=== PATIENT | female | born 1945 | race Caucasian/White ===

== ENCOUNTER 2016-07-30 13:53 | Inpatient (IN) | payer OTHER ==
[~2016-07-30] VITALS: Ht 160 cm; Wt 96.7 kg
[2016-07-30] VITALS (10 sets, daily range): BP systolic 125–185; BP diastolic 34–84
[2016-07-30 15:16] LABS: HEMATOCRIT 19.8 % (36.0-46.0); MCH 14.8 PG (29.0-34.0); MCHC 25.3 G/DL (30.0-36.0); MCV 58.8 FL (83-99); RBC DIS.WIDTH-CV 23.3 % (11.8-14.6); RBC DIS.WIDTH-SD 45.6 % (39-53); RED BLOOD COUNT 3.37 M/uL (3.80-5.20); WHITE BLOOD COUNT 7.1 K/uL (4.1-10.2)
[2016-07-30 15:33] LABS: ANION GAP 16 MEQ/L (2-14); CHLORIDE 99 MEQ/L (99-109); POTASSIUM 3.9 MEQ/L (3.7-5.4); SAMPLE HEMOLYSIS CHECK 0; SAMPLE ICTERIC CHECK 0; SAMPLE LIPEMIA CHECK 0; SODIUM 141 MEQ/L (136-147)
[2016-07-30 15:38] LABS: GFR ESTIMATE (CALCULATED) > 59 mL/min/; GLUCOSE 186 mg/dL (70-99); UREA NITROGEN (BUN) 18 mg/dL (9-23)
[2016-07-30 16:03] LABS: PLATELET COUNT 245 K/uL (156-360)
[2016-07-30 19:03] LABS: ALKALINE PHOSPHATASE 54 IU/L (3-129); DIRECT BILIRUBIN 0.1 mg/dL (0.0-0.3); TOTAL BILIRUBIN 0.5 MG/DL (0.0-1.0)
[2016-07-30 19:09] LABS: INTER. NORMALIZED RATIO 1.1; PROTHROMBIN TIME 10.7 (9.2-11.2); PTT 23.9 (25-32)
[2016-07-31] VITALS (10 sets, daily range): BP systolic 140–172; BP diastolic 59–71
[2016-07-31 05:44] LABS: ANION GAP 10 MEQ/L (2-14); CHLORIDE 103 MEQ/L (99-109); GFR ESTIMATE (CALCULATED) > 59 mL/min/; POTASSIUM 3.9 MEQ/L (3.7-5.4); SAMPLE HEMOLYSIS CHECK 0; SAMPLE ICTERIC CHECK 0; SAMPLE LIPEMIA CHECK 0; SODIUM 139 MEQ/L (136-147); UREA NITROGEN (BUN) 12 mg/dL (9-23)
[2016-07-31 05:46] LABS: HEMATOCRIT 23.9 % (36.0-46.0); MCH 18.3 PG (29.0-34.0); MCHC 28.5 G/DL (30.0-36.0); MCV 64.6 FL (83-99); RBC DIS.WIDTH-CV 26.9 % (11.8-14.6); RBC DIS.WIDTH-SD 62.6 % (39-53); RED BLOOD COUNT 3.72 M/uL (3.80-5.20); WHITE BLOOD COUNT 6.9 K/uL (4.1-10.2)
[2016-07-31 05:53] LABS: GLUCOSE 119 mg/dL (70-99)
[2016-07-31 06:16] LABS: PLATELET COUNT 259 K/uL (156-360)
[2016-07-31] MEDS ORDERED: GLUCOPHAGE1000 MG PO (11:29)
[2016-07-31] MEDS ORDERED: OXYCODONE HCL10 MG PO (11:29)
[2016-07-31] MEDS ORDERED: LEVEMIR FL100 UNIT/1 SC (11:29)
[2016-07-31] MEDS ORDERED: OXYBUTYNIN CHLO10 MG PO (11:30)
[2016-07-31] MEDS ORDERED: PLAVIX75 MG PO (11:30)
[2016-07-31] MEDS ORDERED: CARDURA4 MG PO (11:30)
[2016-07-31] MEDS ORDERED: HYDROCHLOROTH12.5 M3 PO (11:31)
[2016-07-31] MEDS ORDERED: PRILOSEC20 MG PO (11:31)
[2016-07-31] MEDS ORDERED: NEURONTIN300 MG PO (11:32)
[2016-07-31] MEDS ORDERED: COZAAR100 MG PO (11:32)
[2016-07-31] MEDS ORDERED: PRANDIN1 MG PO (11:32)
[2016-07-31] MEDS ORDERED: ZOLOFT50 MG PO (11:33)
[2016-07-31] MEDS ORDERED: LOW DOSE ASPIRI81 M1 PO (11:33)
[2016-07-31] MEDS ORDERED: NORVASC5 MG PO (11:33)
[2016-07-31] MEDS ORDERED: LIPITOR40 MG PO (11:33)
[2016-07-31] MEDS ORDERED: LUMIGAN 0.50 DROP/22 BOTH EYES (11:34)
[2016-07-31] MEDS ORDERED: ILEVRO1.7 ML LEFT EYE (11:34)
[2016-07-31] MEDS ORDERED: DUREZOL 0.100 DROP/5 LEFT EYE (11:34)
[2016-07-31 13:30] LABS: HEMATOCRIT 28.6 % (36.0-46.0); MCV 65.7 FL (83-99)
[2016-07-31 14:27] LABS: ADD MIUA? YES; BILIRUBIN NEGATIVE; BLOOD MODERATE; COLOR YELLOW ((YELLOW)); GLUCOSE (STRIP) NEGATIVE; KETONES NEGATIVE; LEUKOCYTES SMALL; NITRITE NEGATIVE; PROTEIN (STRIP) 30; SPECIFIC GRAVITY 1.009 (1.000-1.030); UROBILINOGEN 0.2 MG/DL (0.2-1.0)
[2016-07-31 15:34] LABS: BACTERIA RARE; CASTS NONE SEEN /LPF; CRYSTALS NONE SEEN; EPITHELIAL CELLS 1+; MUCUS TRACE; RED BLOOD CELLS 0-5 /HPF (0-5); UCUL ADDED? NO; WHITE BLOOD CELLS 0-5 /HPF (0-5)
[2016-07-31 17:13] LABS: POINT-OF-CARE METER ID UU13113694; POINT-OF-CARE USER ID OPEBLP59
[2016-08-01] VITALS: BP 157/67
[2016-08-01 00:32] LABS: HEMATOCRIT 28.6 % (36.0-46.0); MCV 65.7 FL (83-99)
[2016-08-01 04:03] VITALS: BP 146/70
[2016-08-01 07:00] LABS: ANION GAP 13 MEQ/L (2-14); CHLORIDE 101 MEQ/L (99-109); GFR ESTIMATE (CALCULATED) > 59 mL/min/; GLUCOSE 136 mg/dL (70-99); POTASSIUM 3.7 MEQ/L (3.7-5.4); SAMPLE HEMOLYSIS CHECK 0; SAMPLE ICTERIC CHECK 0; SAMPLE LIPEMIA CHECK 0; SODIUM 140 MEQ/L (136-147); UREA NITROGEN (BUN) 9 mg/dL (9-23)
[2016-08-01 07:52] VITALS: BP 138/58
[2016-08-01 07:59] LABS: HEMATOCRIT 28.3 % (36.0-46.0); MCH 20.1 PG (29.0-34.0); MCV 67.1 FL (83-99); PLATELET COUNT 243 K/uL (156-360); RBC DIS.WIDTH-CV 27.8 % (11.8-14.6); RBC DIS.WIDTH-SD 67.3 % (39-53); RED BLOOD COUNT 4.22 M/uL (3.80-5.20); WHITE BLOOD COUNT 6.7 K/uL (4.1-10.2)
[2016-08-01 12:31] LABS: POINT-OF-CARE METER ID UU13113694
[2016-08-01 15:23] VITALS: BP 195/81
[2016-08-01 19:55] VITALS: BP 163/69
[2016-08-02] VITALS (7 sets, daily range): BP systolic 133–180; BP diastolic 60–73
[2016-08-02 06:41] LABS: GFR ESTIMATE (CALCULATED) > 59 mL/min/; UREA NITROGEN (BUN) 8 mg/dL (9-23)
[2016-08-02 08:29] LABS: NRBC (%) 0.8 /100 WBC (0-0)
[2016-08-02 08:37] LABS: ANION GAP 12 MEQ/L (2-14); CHLORIDE 107 MEQ/L (99-109); GLUCOSE 133 mg/dL (70-99); SODIUM 143 MEQ/L (136-147)
[2016-08-02 08:39] LABS: BASOPHIL COUNT 0.1 K/uL (0-0.1); EOSINOPHIL (%) 2.4 % (0-5); EOSINOPHIL COUNT 0.2 K/uL (0-0.3); IMMATURE GRANULOCYTE (%) 1.6 % (0.0-0.7); IMMATURE GRANULOCYTE COUNT 0.1 K/uL; LYMPHOCYTE COUNT 1.9 K/uL (1.0-2.8); MONOCYTE (%) 10.3 % (3-12); MONOCYTE COUNT 0.8 K/uL (0-0.8); NEUTROPHIL (%) 59.7 % (45-76); NEUTROPHIL COUNT 4.5 K/uL (1.8-6.4)
[2016-08-02 09:24] LABS: HEMATOCRIT 29.5 % (36.0-46.0); MCH 20.1 PG (29.0-34.0); MCHC 29.2 G/DL (30.0-36.0); MCV 68.9 FL (83-99); RBC DIS.WIDTH-SD 70.5 % (39-53); RED BLOOD COUNT 4.28 M/uL (3.80-5.20); WHITE BLOOD COUNT 7.5 K/uL (4.1-10.2)
[2016-08-02 09:51] LABS: PLAT.SUFFICIENCY ADEQUATE; PLATELET COUNT 223 K/uL (156-360); USER ID STC
[2016-08-03 00:25] VITALS: BP 151/64
[2016-08-03 04:30] VITALS: BP 130/69
[2016-08-03 07:51] LABS: ANION GAP 11 MEQ/L (2-14); CHLORIDE 105 MEQ/L (99-109); GFR ESTIMATE (CALCULATED) > 59 mL/min/; GLUCOSE 146 mg/dL (70-99); POTASSIUM 3.9 MEQ/L (3.7-5.4); SAMPLE HEMOLYSIS CHECK 0; SAMPLE ICTERIC CHECK 0; SAMPLE LIPEMIA CHECK 0; SODIUM 141 MEQ/L (136-147); UREA NITROGEN (BUN) 13 mg/dL (9-23)
[2016-08-03 08:08] VITALS: BP 145/65
[2016-08-03 08:10] LABS: BASOPHIL COUNT 0.1 K/uL (0-0.1); EOSINOPHIL (%) 2.8 % (0-5); EOSINOPHIL COUNT 0.2 K/uL (0-0.3); HEMATOCRIT 31.2 % (36.0-46.0); IMMATURE GRANULOCYTE COUNT 0.1 K/uL; MCH 20.1 PG (29.0-34.0); MCHC 28.8 G/DL (30.0-36.0); MCV 69.8 FL (83-99); MONOCYTE (%) 7.7 % (3-12); MONOCYTE COUNT 0.6 K/uL (0-0.8); NEUTROPHIL (%) 61.6 % (45-76); NEUTROPHIL COUNT 4.8 K/uL (1.8-6.4); RBC DIS.WIDTH-CV 29.9 % (11.8-14.6); RBC DIS.WIDTH-SD 70.7 % (39-53); RED BLOOD COUNT 4.47 M/uL (3.80-5.20); WHITE BLOOD COUNT 7.8 K/uL (4.1-10.2)
[2016-08-03 08:15] LABS: PLAT.SUFFICIENCY ADEQUATE; PLATELET COUNT 240 K/uL (156-360); USER ID STC
[2016-08-03 11:10] VITALS: BP 142/56
[2016-08-03] MEDS ORDERED: IRON325 MG PO (12:48)
[2016-08-03] MEDS ORDERED: CYANOCOBALAM1000 MCG PO (12:48)
[2016-08-03] MEDS ORDERED: AMLODIPINE BESY10 MG PO (12:48)
[2016-08-03] MEDS ORDERED: COLACE100 MG PO (12:48)
== END 2016-08-03 14:15 | disposition home or self-care (01) | DRG 379 ==
LOC: EME 13:53 → EDOF 18:22 → 5SOUTH 18:22
PROVIDERS: Emergency Medicine; Hospitalist; Internal Medicine; Internal Medicine Gastroenterology
PROC: 0DJ08ZZ Inspection of Upper Intestinal Tract, Via Natural or Artificial Opening Endoscopic (ICD-10-PCS; principal; 2016-07-31)
PROC: 30233N1 Transfusion of Nonautologous Red Blood Cells into Peripheral Vein, Percutaneous Approach (ICD-10-PCS; principal; 2016-07-31)
PROC: 0DBH8ZX Excision of Cecum, Via Natural or Artificial Opening Endoscopic, Diagnostic (ICD-10-PCS; 2016-08-01)
PROC: 0DBL8ZX Excision of Transverse Colon, Via Natural or Artificial Opening Endoscopic, Diagnostic (ICD-10-PCS; 2016-08-01)
DX: K92.2 Gastrointestinal hemorrhage, unspecified (principal); E11.69 Type 2 diabetes mellitus with other specified complication; D51.9 Vitamin B12 deficiency anemia, unspecified; E66.01 Morbid (severe) obesity due to excess calories; I65.29 Occlusion and stenosis of unspecified carotid artery; D50.9 Iron deficiency anemia, unspecified; I10 Essential (primary) hypertension; E78.4 Other hyperlipidemia; I73.9 Peripheral vascular disease, unspecified; Z87.891 Personal history of nicotine dependence; Z79.4 Long term (current) use of insulin; Z79.84 Long term (current) use of oral hypoglycemic drugs; Z68.37 Body mass index [BMI] 37.0-37.9, adult; K44.9 Diaphragmatic hernia without obstruction or gangrene; I25.10 Atherosclerotic heart disease of native coronary artery without angina pectoris; N28.9 Disorder of kidney and ureter, unspecified; K22.70 Barrett's esophagus without dysplasia; K31.7 Polyp of stomach and duodenum; D17.79 Benign lipomatous neoplasm of other sites; K63.5 Polyp of colon; K64.8 Other hemorrhoids; K57.30 Diverticulosis of large intestine without perforation or abscess without bleeding; F32.9 Major depressive disorder, single episode, unspecified; T45.525A Adverse effect of antithrombotic drugs, initial encounter; T39.015A Adverse effect of aspirin, initial encounter
CPT/HCPCS: 36415; 71010; 74177; 80048; 80048 91; 80069; 80076; 81003; 82272; 82565; 82607; 82728; 82746; 82948; 83036; 83540; 84443; 84466; 84520; 85014; 85018; 85025; 85027; 85045; 85610; 85730; 86850; 86900; 86901; 86920; 88305; 99281; 99284; B4087; C9113; J1756; J1815; J1940; J3420; J7050; P9016; Q0138

== ENCOUNTER → 2016-09-26 | Outpatient (CLI) | payer OTHER ==
[~2016-09-26] MED LIST: AMLODIPINE BESY10 MG PO; CARDURA4 MG PO; COLACE100 MG PO; COZAAR100 MG PO; CYANOCOBALAM1000 MCG PO; DUREZOL 0.100 DROP/5 LEFT EYE; GLUCOPHAGE1000 MG PO; HYDROCHLOROTH12.5 M3 PO; ILEVRO1.7 ML LEFT EYE; IRON325 MG PO; LEVEMIR FL100 UNIT/1 SC; LIPITOR40 MG PO; LOW DOSE ASPIRI81 M1 PO; LUMIGAN 0.50 DROP/22 BOTH EYES; NEURONTIN300 MG PO; NORVASC5 MG PO; OMEPRAZOLE40 M1 PO; OXYBUTYNIN CHLO10 MG PO; OXYCODONE HCL10 MG PO; OXYCONTIN15 MG PO; PLAVIX75 MG PO; PRANDIN1 MG PO; PRILOSEC20 MG PO; ZOLOFT50 MG PO
== END | disposition home or self-care (01) ==
LOC: CDC 14:51
DX: R94.31 Abnormal electrocardiogram [ECG] [EKG] (principal); I25.10 Atherosclerotic heart disease of native coronary artery without angina pectoris
CPT/HCPCS: 93000

== ENCOUNTER 2016-10-01 10:00 | Inpatient (IN) | payer OTHER ==
[~2016-10-01] VITALS: Ht 160 cm; Wt 94.5 kg
[2016-10-01] VITALS (10 sets, daily range): BP systolic 94–143; BP diastolic 44–63
[2016-10-01 10:51] LABS: POINT-OF-CARE METER ID UU14174212
[2016-10-01 16:14] LABS: METH RESISTANT S AUREUS PCR NEGATIVE (NEGATIVE)
[2016-10-01 16:15] LABS: PROBE CHECK PASS; SPECIMEN PROCESSING CONTROL PASS
[2016-10-01 17:36] LABS: POINT-OF-CARE METER ID UU13113748
[2016-10-02 03:00] VITALS: BP 112/56
[2016-10-02 07:39] LABS: POINT-OF-CARE METER ID UU13113781
[2016-10-02 08:56] VITALS: BP 93/52
== END 2016-10-02 12:48 | disposition home or self-care (01) | DRG 39 ==
LOC: 2SOUTH → 4WEST 14:42 → 2SOUTH 15:14 → 4EAST 21:58
PROVIDERS: Surgery
PROC: 03UL0JZ Supplement Left Internal Carotid Artery with Synthetic Substitute, Open Approach (ICD-10-PCS; principal; 2016-10-01)
PROC: 03CL0ZZ Extirpation of Matter from Left Internal Carotid Artery, Open Approach (ICD-10-PCS; principal; 2016-10-01)
DX: I65.22 Occlusion and stenosis of left carotid artery (principal); R33.9 Retention of urine, unspecified; I10 Essential (primary) hypertension; E11.9 Type 2 diabetes mellitus without complications; E78.5 Hyperlipidemia, unspecified; K21.9 Gastro-esophageal reflux disease without esophagitis; E66.9 Obesity, unspecified; Z68.36 Body mass index [BMI] 36.0-36.9, adult; Z88.5 Allergy status to narcotic agent; Z87.891 Personal history of nicotine dependence
CPT/HCPCS: 82948; 87641; 93005; 94799; C1768; J0690; J1170; J1644; J1650; J1815; J2250; J2405; J2720; J2795; J3010; J7120

== ENCOUNTER 2016-10-29 05:15 | Inpatient (IN) | payer OTHER ==
[2016-10-29] VITALS (15 sets, daily range): BP systolic 73–124; BP diastolic 33–69
[~2016-10-29] VITALS: Ht 160 cm; Wt 92.0 kg
[~2016-10-29 05:15] MED LIST changes: +FEOSOL325 MG PO; +OXAYDO5 MG PO; +VITAMIN B12-FO1 EACH PO
[2016-10-29 06:18] LABS: POINT-OF-CARE METER ID UU14174212
[2016-10-29 09:55] LABS: POINT-OF-CARE METER ID UU13113675
[2016-10-29 12:51] LABS: POINT-OF-CARE METER ID UU13113803
[2016-10-29 13:08] LABS: METH RESISTANT S AUREUS PCR NEGATIVE (NEGATIVE); PROBE CHECK PASS; SPECIMEN PROCESSING CONTROL PASS
[2016-10-29 16:55] LABS: ANION GAP 6 MEQ/L (2-14); CHLORIDE 105 MEQ/L (99-109); POTASSIUM 4.1 MEQ/L (3.7-5.4); SAMPLE HEMOLYSIS CHECK 0; SAMPLE ICTERIC CHECK 0; SAMPLE LIPEMIA CHECK 0; SODIUM 139 MEQ/L (136-147)
[2016-10-29 17:01] LABS: GFR ESTIMATE (CALCULATED) 58 mL/min/; GLUCOSE 153 mg/dL (70-99); UREA NITROGEN (BUN) 22 mg/dL (9-23)
[2016-10-29 20:45] LABS: POINT-OF-CARE METER ID UU14174216
[2016-10-30 04:06] VITALS: BP 146/59
[2016-10-30 08:00] LABS: POINT-OF-CARE METER ID UU14174216; POINT-OF-CARE USER ID ENVKC36
[2016-10-30 09:00] VITALS: BP 141/64
[2016-10-30 11:50] LABS: POINT-OF-CARE METER ID UU14174216; POINT-OF-CARE USER ID ENVKC36
[2016-10-30 11:56] VITALS: BP 130/52
== END 2016-10-30 15:15 | disposition home or self-care (01) | DRG 39 ==
LOC: 2SOUTH 05:15 → 4EAST 05:15 → 2SOUTH 09:12 → 4WEST 11:17 → 2SOUTH 14:47 → 4EAST 20:11
PROVIDERS: Surgery
DX: I65.21 Occlusion and stenosis of right carotid artery (principal); I44.1 Atrioventricular block, second degree; I10 Essential (primary) hypertension; E11.9 Type 2 diabetes mellitus without complications; K21.9 Gastro-esophageal reflux disease without esophagitis; K44.9 Diaphragmatic hernia without obstruction or gangrene; M19.90 Unspecified osteoarthritis, unspecified site; E78.5 Hyperlipidemia, unspecified; E66.9 Obesity, unspecified; Z68.35 Body mass index [BMI] 35.0-35.9, adult; Z87.891 Personal history of nicotine dependence
CPT/HCPCS: 80048; 82948; 87641; 93005; 94799; C1768; J0131; J0690; J1170; J1644; J1650; J1815; J2250; J2405; J2720; J2795; J3010; J7120

== ENCOUNTER 2018-02-04 07:56 | Day surgery (SDC) | payer OTHER ==
[~2018-02-04] VITALS: Ht 160 cm; Wt 102.5 kg
[~2018-02-04 07:56] MED LIST changes: +CARDURA8 MG PO; +ESSENTIAL WOMA1 EAC1 PO; +HYDROCHLOROTHIA25 MG PO; +NEURONTIN600 MG PO; +NORVASC10 MG PO; +NYAMYC60 GM TP; -OXAYDO5 MG PO; -OXYBUTYNIN CHLO10 MG PO; +OXYBUTYNIN CHLO15 MG PO; +OXYCODONE-APAP1 EAC6 PO
[2018-02-04 08:54] LABS: CHLORIDE 105 MEQ/L (99-109); CREATININE 0.8 MG/DL (0.6-1.3); GFR ESTIMATE (CALCULATED) > 59 mL/min/; GLUCOSE 151 mg/dL (70-99); POTASSIUM 3.8 MEQ/L (3.7-5.4); SODIUM 144 MEQ/L (136-147); UREA NITROGEN (BUN) 23 mg/dL (9-23)
== END 2018-02-04 09:50 | disposition home or self-care (01) ==
LOC: PAIN 07:56 → SDC 09:00 → PAIN 09:00
PROVIDERS: Anesthesiology; Anesthesiology Pain Medicine
DX: M54.16 Radiculopathy, lumbar region (principal); M51.37 Other intervertebral disc degeneration, lumbosacral region; M51.26 Other intervertebral disc displacement, lumbar region; M47.816 Spondylosis without myelopathy or radiculopathy, lumbar region; Z87.891 Personal history of nicotine dependence; Z79.4 Long term (current) use of insulin; Z79.82 Long term (current) use of aspirin; Z88.5 Allergy status to narcotic agent
CPT/HCPCS: 80048; 82948; 93005; J1100; J2250

== ENCOUNTER 2018-03-08 08:21 | Day surgery (SDC) | payer OTHER ==
[~2018-03-08] VITALS: Ht 160 cm; Wt 102.5 kg
== END 2018-03-08 10:28 | disposition home or self-care (01) ==
LOC: PAIN 08:21 → SDC 09:00 → PAIN 10:28
PROVIDERS: Anesthesiology Pain Medicine
DX: M54.16 Radiculopathy, lumbar region (principal); M51.26 Other intervertebral disc displacement, lumbar region; M47.816 Spondylosis without myelopathy or radiculopathy, lumbar region; Z87.891 Personal history of nicotine dependence; E11.9 Type 2 diabetes mellitus without complications; Z79.4 Long term (current) use of insulin; I10 Essential (primary) hypertension; E78.5 Hyperlipidemia, unspecified; K21.9 Gastro-esophageal reflux disease without esophagitis; F32.9 Major depressive disorder, single episode, unspecified; E66.9 Obesity, unspecified; Z68.38 Body mass index [BMI] 38.0-38.9, adult; Z88.5 Allergy status to narcotic agent
CPT/HCPCS: 82948; J1100; J2250; J3010